=== PATIENT | male | born 1990 | race Caucasian/White ===

== ENCOUNTER 2023-05-14 01:10 | Day surgery (SDC) | payer BC, SELFPAY ==
--- NOTE | 2023-05-07 09:56 | PC.NURSE ---
Report to the Outpatient Waiting Room, entrance under the green pavilion located off [facility], at time _0830___ on date [id number]___. Planned Procedure Time: __1030 . Time changes happen often and if your time is changed the preop area will call you the afternoon before. - You and your visitor will be asked to self-screen and do not enter if you have any COVID symptoms. - A mask is optional within the hospital at this time. Patients may have clear liquids (water, carbonated beverages, clear teas, apple juice) until 3 hours prior to surgery with a maximum of 20 ounces. - No food from midnight until time of surgery - Take the following medications with a SIP of water the morning of surgery: none DO NOT STOP ANY OF YOUR OTHER PRESCRIPTION MEDICATIONS PRIOR TO SURGERY ?EXCEPT THE FOLLOWING Medications to discontinue per physician Do not take Adderral the morning of surgery Date to take last slnx [id number] Please no make-up, nail icelandic, hairspray, perfume, deodorant, or body powder the day of surgery. No jewelry (including any body piercings) or valuables the day of surgery, leave them at home. Please take a shower or bath the night before, or the morning of, surgery with an antibacterial soap. Wear comfortable, loose fitting clothing. - Jewelry must be removed prior to entering the operating room. Rings and piercings that are not removed may be cut off. - The hospital will not accept responsibility for valuables. - Please leave all valuables, including medications, at home the day of surgery. If you are going home after surgery, a licensed powder truck driver must drive you home. - NO public transportation without another adult if you receive anesthesia. - We recommend that an adult stay with you for 24 hours following discharge. - We also recommend that you do not drive, make important decision, drink alcoholic beverages, or take any drugs that were not prescribed by your health care provider for at least 24 hours after your discharge time. Follow any additional instructions given to you from your surgeon. If you or anyone in your household have experienced Covid symptoms in the past week, please notify your surgeon or the nurse liaison at the phone number below for possible testing. Telephone instructions given to __Theodore (patient) and asked if any additional questions and then verbalized understanding. Patient advised to call surgeon office or pre surgery nurse liaison [phone] if any additional questions.
[2023-05-07 10:20] VITALS: BMI 25.7
[2023-05-14] VITALS (7 sets, daily range): BP systolic 92–106; BP diastolic 46–68; PULSE 57–78; RESP 12–18; TEMP 36.2–36.8; O2SAT 99–100; BMI 24.2
[2023-05-14] MEDS: LACTATED RINGERS 1,000 ML 30 ML IV CONT (09:00)
--- NOTE | 2023-05-14 09:10 | WPDHPUPDATE1 ---
History and Physical Update Update Date/Time: 05/14/23 09:10 History and Physical has been reviewed, including an updated exam of the patient. There are NO changes in the patient's condition. Risks, benefits, and alternatives have been discussed and questions answered. Patient agrees to proceed with procedure.
--- NOTE | 2023-05-14 10:11 | P.PNAN_ITS ---
Anes - Initial Pre Proc Eval Procedure: Operation Date: 05/14/23 10:30 Proposed Procedures p Excisional Biopsy of the Scalp Cystic Mass - Jo-Ann Dejesus MD Date/Time: 05/14/23 10:11 Surgeon: Jo-Ann Dejesus MD Pre Op Diagnosis: Lt Anterior Scalp Cyst (3.5cm x 3.0cm) Patient Data Age: 32 Gender: M Height: 1.65 m Weight: 66.1 kg Last Vital Signs Temp 98.3 F 05/14/23 08:37 Pulse 78 05/14/23 08:37 Resp 18 05/14/23 08:37 BP 106/67 05/14/23 08:37 Pulse Ox 100 05/14/23 08:37 O2 Del Method Room Air 05/14/23 08:37 Allergies Allergy/AdvReac Type Severity Reaction Status Date / Time No Known Allergies Allergy Verified 05/14/23 09:09 Home Medications Medication Instructions Recorded Confirmed Type dextroamphetamine-amphetamine 20 20 mg PO DAILY 04/10/23 05/07/23 History mg tablet (Adderall) Patient hx anesthesia problems: none Family hx anesthesia problems: none Results Review: All pre-operative results and documents have been reviewed as part of the pre- operative evaluation. [facility] Past Medical History Medical History ADD (attention deficit disorder) Anxiety Surgical History Surgical History History of nasal surgery Family History Family History Father Hypertension Other Cancer Cerebrovascular accident Diabetes mellitus Social History Social History Smoking status: Current every day smoker Tobacco type: pipe Second hand tobacco smoke exposure: Yes Additional smoking assessment comments: herbal tobacco in a pipe Alcohol intake: current Drinks per week: 2 Alcohol use details: socially Substance use: current Substance use type: marijuana Living arrangements: with family Occupation/Education: occupation 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 Informed Consent: The patient's anesthetic plan and its attendant risks and benefits were discussed with the patient/family/POA. Questions were solicited and answers provided to the satisfaction of the patient/family/POA.
[2023-05-14] MEDS: ceFAZolin 2 GM/D5W 50 ML 2 GM/50 ML BAG IVPB (10:48)
--- NOTE | 2023-05-14 11:41 | P.OP_ITS ---
Procedure Note - Detailed Date of Procedure 05/14/23 Pre-op Diagnosis Lt Anterior Scalp Cyst (3.5cm x 3.0cm) Post-op Diagnosis Same Procedure Performed Excisional biopsy left anterior scalp cystic mass Surgeon Jo-Ann Dejesus MD Anesthesia General and Local Indications 32-year-old male presenting to the office initially with a left anterior scalp cystic mass. The patient reports the area has been slowly growing in size and is tender to palpation, pressure. Findings 3.5 x 3 cm cystic mass in the left anterior scalp removed in full Description of Procedure The patient was taken to the operating room and placed in the supine position. After adequate induction of general anesthesia, the patient was prepped and draped in the normal sterile fashion. A time-out was then done to verify the patient's identity, as well as the procedure being performed. I began by localizing the area and around the cystic mass in the left anterior scalp. I then used a 15 blade scalpel to make an incision over the mass. I was able to get through the dermal layer and within the subcutaneous tissue there was noted to be a well-circumscribed cystic mass. I was able to bluntly and sharply dissected around this mass. Once completely dissected I was able to remove the mass in full. The mass itself measured approximately 2 x 1.5 cm. It will be sent to pathology for further review. I then irrigated the cavity and h emostasis was gained with the Bovie cautery. I then closed subcutaneous tissue with interrupted 3-0 Vicryl suture. The skin was closed with 4-0 Monocryl subcuticular suture. Dermabond was placed on the wound. The patient tolerated the procedure well and was extubated postoperatively. He will be transferred to the recovery room in stable condition. Estimated Blood Loss 10 Pathology Yes Complications No immediate complications Condition Stable Disposition PACU [facility] Billing Surgery - Charge Forward: Surgery Billing
== END 2023-05-14 13:20 | disposition home or self-care (01) ==
PROVIDERS: PCP Emergency Medicine; Visit Provider Surgery
PROC: (CPT 11426; principal; 2023-05-14 10:30)
DX: L72.11 Pilar cyst (principal); F41.9 Anxiety disorder, unspecified; F98.8 Other specified behavioral and emotional disorders with onset usually occurring in childhood and adolescence; F17.290 Nicotine dependence, other tobacco product, uncomplicated; F12.90 Cannabis use, unspecified, uncomplicated; Z98.890 Other specified postprocedural states; Z80.9 Family history of malignant neoplasm, unspecified; Z82.49 Family history of ischemic heart disease and other diseases of the circulatory system
CPT/HCPCS: 11426; 12032; 88304; J0690; J1100; J2250; J2405; J2704; J3010; J7120